=== PATIENT | male | born 1960 | race Caucasian/White ===

== ENCOUNTER 2018-10-26 14:32 | Emergency (ER) | payer BC ==
--- NOTE | 2018-10-26 16:00 | ED.PDOC ---
History of Present Illness - General Chief Complaint: General Stated Complaint: abnormal lab value Time Seen by Provider: 10/26/18 15:39 Source: patient Exam Limitations: no limitations - History of Present Illness Initial Comments: Bertin Whitaker 58 y/o male came to ER after his primary Md Dr. Vaca called him up regarding abnormal laboratory values on his lab work done today.His lab test showed Glu-488;Triglycerides-[id number];Cholesterol-673;Hgb A1c-13.Patient stated never been diagnosed with DM in the past.Also denies any symptoms presently.He was also referred to Dr. 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 Timing/Duration: 24 hours Improving Factors: nothing Worsening Factors: nothing Associated Symptoms: denies symptoms Allergies/Adverse Reactions: Allergies NO KNOWN ALLERGY Allergy (Verified 10/26/18 15:48) Home Medications: Ambulatory Orders Amlodipine Besylate 10 mg PO DAILY 10/26/18 Cyclobenzaprine HCl [Flexeril] 10 mg PO PRN 10/26/18 HYDROcodone 10MG/APAP 325MG [[place] 10/325] 1 ea PO PRN 10/26/18 Labetalol HCl 300 mg PO BID 10/26/18 Lisinopril 40 mg PO DAILY 10/26/18 Rosuvastatin Calcium [Crestor] 20 mg PO DAILY 10/26/18 Review of Systems - Review of Systems Constitutional: States: no symptoms reported EENTM: States: no symptoms reported Respiratory: States: no symptoms reported Cardiology: States: no symptoms reported Gastrointestinal/Abdominal: States: no symptoms reported Genitourinary: States: no symptoms reported Musculoskeletal: States: no symptoms reported Skin: States: no symptoms reported Neurological: States: no symptoms reported Endocrine: States: no symptoms reported All other Systems: Reviewed and Negative, No Change from Baseline Past Medical History (General) - Patient Medical History Hx Stroke: No Hx Congestive Heart Failure: No Hx Hypertension: Yes Hx Diabetes: No Surgical History: appendectomy, cholecystectomy, other - rotator cuff right - Vaccination History Hx Influenza Vaccination: No Hx Pneumococcal Vaccination: No - Social History Hx Tobacco Use: Yes Hx Alcohol Use: Yes - 2 beers Hx Physical Abuse: No Hx Emotional Abuse: No - Activities of Daily Living Patient Lives Alone: No Family Medical History - Family History Mother Family History: Unknown Living Status: Unknown Hx Family Stroke: Yes - mom-Brain aneurysm Hx Family;Other: Dad-Alzheimers Physical Exam - Physical Exam General Appearance: Alert, Comfortable, No apparent distress Eye Exam: bilateral normal Ears, Nose, Throat: hearing grossly normal, normal ENT inspection Neck: non-tender, supple, normal inspection Respiratory: chest non-tender, lungs clear, normal breath sounds Cardiovascular/Chest: normal peripheral pulses, regular rate, rhythm, no murmur Peripheral Pulses: radial,right: 2+, radial,left: 2+ Gastrointestinal/Abdominal: non tender, soft, no organomegaly Extremity: normal inspection Neurologic: alert, oriented x 3 Skin Exam: normal color, warm/dry Progress - Progress Progress: 10/26/18 16:03 Vital Signs - 24 hr 10/26/18 14:48 Temperature 98.3 F Pulse Rate [ 99 H Left Brachial] Respiratory 20 Rate Blood Pressure 154/88 [Left Arm] O2 Sat by Pulse 99 Oximetry - Results/Orders Results/Orders: Decliend ambulance transfer wants to by POV driving him;stated knows [facility] Departure - Departure Clinical Impression: Complex dyslipidemia Hyperglycemia due to type 2 diabetes mellitus Qualifiers: 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 Copy, Patient Portal Self Enrollment Referrals: [facility] MARIE [Primary Care Provider] - 1-2 Weeks Home Medications: Ambulatory Orders Amlodipine Besylate 10 mg PO DAILY 10/26/18 Cyclobenzaprine HCl [Flexeril] 10 mg PO PRN 10/26/18 HYDROcodone 10MG/APAP 325MG [[place] 10/325] 1 ea PO PRN 10/26/18 Labetalol HCl 300 mg PO BID 10/26/18 Lisinopril 40 mg PO DAILY 10/26/18 Rosuvastatin Calcium [Crestor] 20 mg PO DAILY 10/26/18 Additional Instructions: DECLINED AMBULANCE TRANSFER WANT TO GO BY POV WITH DRIVING Transfer to Outside Facility - Transfer Information Accepting Provider:: Dr.Chapa-ER [place] Accepting Facility: [facility] Reason for Transfer: required specialist not available - 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
[2018-10-26 16:11] VITALS: BP 134/75; TEMP 98; O2SAT 96
== END 2018-10-26 16:11 | disposition short-term general hospital (02) ==
LOC: ER 14:32
DX: E11.65 Type 2 diabetes mellitus with hyperglycemia (principal); E78.49 Other hyperlipidemia; I10 Essential (primary) hypertension; Z79.899 Other long term (current) drug therapy

== ENCOUNTER → 2018-10-26 | Outpatient (CLI) | payer BC | LOC: LAB.O 08:49 | PROVIDERS: ATTEND Nurse Practitioner Family | DX: R53.83 Other fatigue (principal); E78.5 Hyperlipidemia, unspecified ==

== ENCOUNTER → 2018-11-07 | Outpatient (CLI) | payer BC | LOC: LAB.O 07:14 | PROVIDERS: ATTEND Internal Medicine Endocrinology, Diabetes & Metabolism | DX: E11.42 Type 2 diabetes mellitus with diabetic polyneuropathy (principal) ==

== ENCOUNTER → 2019-01-26 | Outpatient (CLI) | payer BC | LOC: LAB.O 08:23 | PROVIDERS: ATTEND Internal Medicine Endocrinology, Diabetes & Metabolism | DX: E11.65 Type 2 diabetes mellitus with hyperglycemia (principal) ==

== ENCOUNTER → 2019-05-04 | Outpatient (CLI) | payer BC | LOC: LAB.O 16:19 | PROVIDERS: ATTEND Internal Medicine Endocrinology, Diabetes & Metabolism | DX: E11.65 Type 2 diabetes mellitus with hyperglycemia (principal) ==